=== PATIENT | female | born 1995 | race Caucasian/White ===

== ENCOUNTER 2020-10-10 09:32 | Emergency (ER) | payer MEDICAID ==
[~2020-10-10] VITALS: Ht 154.9 cm; Wt 61.0 kg
[2020-10-10] MEDS ORDERED: DOXYCYCLINE HYCLATE 100MG CAPSULE PO ONE (10:00)
[2020-10-10] MEDS ORDERED: CEFTRIAXONE SODIUM 250 MG/VIAL IM ONE (10:00)
[2020-10-10] MEDS ORDERED: METR500T MT (11:14)
[2020-10-10] MEDS ORDERED: DOXY100C42 MT (11:14)
[2020-10-10 11:49] VITALS: BP 129/62
[2020-10-10 12:09] LABS: CLARITY URINE CLEAR (CLEAR); COLOR URINE YELLOW (YELLOW); KETONES URINE NEGATIVE (NEGATIVE); LEUKOCYTE ESTERASE URINE NEGATIVE (NEGATIVE); NITRITE URINE NEGATIVE (NEGATIVE); OCCULT BLOOD URINE NEGATIVE (NEGATIVE); PROTEIN URINE NEGATIVE (NEGATIVE); SPECIFIC GRAVITY URINE 1.027 (1.005-1.030)
[2020-10-13 04:20] LABS: NEISSERIA GONORRHOEAE NAA Negative (Negative)
== END 2020-10-10 11:50 | disposition home or self-care (01) ==
LOC: ER 09:32
DX: N76.0 Acute vaginitis (principal); Z11.3 Encounter for screening for infections with a predominantly sexual mode of transmission
CPT/HCPCS: 81003; 81025; 87210; 87491; 87591; 96372; 99283; J0696